=== PATIENT | male | born 1980 | race Caucasian/White ===

== ENCOUNTER 2017-05-12 11:01 | Emergency (ER) | payer OTHER ==
[~2017-05-12] VITALS: Ht 180.3 cm; Wt 93.2 kg
[2017-05-12 11:41] VITALS: BP 202/109; PULSE 98; RESP 18; TEMP 97.9; O2SAT 99
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
[2017-05-12] MEDS ORDERED: ROBA750T PO (14:07)
[2017-05-12] MEDS ORDERED: IBUP-232 PO (14:07)
[2017-05-12] MEDS ORDERED: IBUPROFEN 600 MG TAB PO ONE (14:15)
[2017-05-12 14:18] VITALS: BP 188/92
== END 2017-05-12 14:19 | disposition home or self-care (01) ==
LOC: NEPD 11:01
DX: S16.1XXA Strain of muscle, fascia and tendon at neck level, initial encounter (principal); M62.830 Muscle spasm of back; V49.59XA Passenger injured in collision with other motor vehicles in traffic accident, initial encounter; Y92.410 Unspecified street and highway as the place of occurrence of the external cause; Z72.0 Tobacco use
CPT/HCPCS: 70450; 72125; 73030